=== PATIENT | female | born 1990 | race Caucasian/White ===

== ENCOUNTER 2019-08-01 16:52 | Emergency (ER) | payer OTHER, MEDICAID, SELFPAY ==
[2019-08-01 17:03] VITALS: BP 116/77; PULSE 127; RESP 28; TEMP 37.2; O2SAT 99; BMI 22.6
--- NOTE | 2019-08-01 17:25 | PC.NURSE ---
Dr. Moraes aware of modified trauma
--- NOTE | 2019-08-01 17:30 | ED.HEATRA ---
HPI - Head Injury <Henri Baxter DO - Last Filed: 08/02/19 06:12> General Chief complaint: Trauma Stated complaint: has the flu, now stomach swelling Time Seen by Provider: 08/01/19 17:28 Source: patient and family Limitations: no limitations History of Present Illness HPI Narrative: 29-year-old female smoker, occasionally uses methamphetamines and very heavy, chronic drinker presents with significant other and a chief complaint of feeling very ill for quite some time, stating she has not gotten off the couch about the past month because she has had the flu. She got up in off the couch and tripped and fell striking her face on the ground which was the triggering event for presentation today. She denies any headache or vision change, no runny nose, sore throat or cough. She does admit to ongoing and worsening generalized abdominal pain and change in bowel caliber. She has had no urinary complaints such as dysuria, frequency or urgency and denies any vaginal bleeding, discharge or other complaints. She states she drinks is much is a 5th of liquor daily. She was admitted at [facility] a few weeks ago under what seem to be relatively similar circumstances. Her last drink was perhaps 1 hour ago per the patient's own admission, she states that she tends to start withdrawing within a few hours Related Data Previous Rx's Medication Instructions Recorded clindamycin HCl [Cleocin HCl] 300 mg PO TID #30 cap 04/29/16 Allergies Allergy/AdvReac Type Severity Reaction Status Date / Time acetaminophen [ACETAMINOPHEN] Allergy Mild (VICODIN) Verified 08/01/19 17:11 ITCHING hydrocodone [HYDROCODONE] Allergy Mild (VICODIN) Verified 08/01/19 17:11 ITCHING hydromorphone [From Dilaudid] Allergy Verified 08/01/19 19:05 <Edgar Moraes MD - Last Filed: 08/02/19 23:16> General Source: patient Limitations: no limitations Review of Systems <Henri Baxter DO - Last Filed: 08/02/19 06:12> Constitutional Constitutional: Reports body ache(s), Denies chills, Reports fatigue, Denies fever(s), Denies frequent falls, Denies lethargy, Reports poor appetite and Denies weakness Eyes Eyes: Denies change in vision, Denies eye discharge, Denies irritation and Denies loss of vision ENT Ears, Nose, Mouth, and Throat: Denies change in voice, Denies dizziness, Denies neck pain, Denies sore throat and Denies throat swelling Cardiovascular Cardiovascular: Denies chest pain, Denies irregular heart rhythm, Denies lightheadedness, Denies palpitations, Denies dyspnea, Denies dyspnea on exertion and Denies orthopnea Respiratory Respiratory: Denies cough, Denies dyspnea, Denies dyspnea on exertion and Denies wheezing Gastrointestinal Gastrointestinal: Denies abdominal pain, Denies change in bowel habits, Denies diarrhea, Denies nausea and Denies vomiting Genitourinary Genitourinary: Denies hematuria, Denies flank pain, Denies urinary incontinence and Denies urinary urgency Musculoskeletal Musculoskeletal: Denies back pain, Denies muscle weakness, Denies neck pain, Denies numbness and Denies tingling Integumentary/Breasts Skin/Breast: Denies pruritus, Denies erythema, Denies rash and Denies wounds Neurologic Neurologic: Denies behavioral changes, Reports confusion, Denies dizziness, Denies frequent falls, Denies loss of vision, Denies numbness, Denies tingling and Denies weakness Psychiatric Psychiatric: Reports anxiety, Denies behavioral changes, Reports confusion, Denies depression, Denies homicidal ideation and Denies suicidal ideation Endocrine Endocrine: Reports fatigue, Denies flushing and Denies palpitations Hematologic/Lymphatic Hematologic/Lymphatic: Denies easy bruising Allergic/Immunologic Allergic/Immunologic: Denies urticaria, Denies throat swelling and Denies wheezing Patient History <Henri Baxter DO - Last Filed: 08/02/19 06:12> Family History Mother Age: 50 Thyroid disorder Uncomplicated asthma, unspecified asthma severity Sister Age: 33 Asthma Social History Smoking Status: Current every day smoker <Edgar Moraes MD - Last Filed: 08/02/19 23:16> Smoking Status: Current every day smoker tobacco type: cigarettes alcohol intake frequency: 3 or more drinks per day Substance Use Type: marijuana and methamphetamine Exam <Henri Baxter DO - Last Filed: 08/02/19 06:12> Narrative Exam Narrative: GENERAL: [29] year old patient appears older than stated age. Chronically ill an obviously in significant distress today. A bit agitated and irritated but directable and alert HEAD: Swelling over right cheek and right upper lip with ecchymosis. EYES: Pupils equal round and reactive. Extraocular motions intact. Scleral icterus ENT: Poor dentition throughout Nose without bleeding, purulent drainage. Throat without erythema, tonsillar hypertrophy or exudate. Airway patent. NECK: Trachea midline. Non tender CARDIOVASCULAR: Tachycardic but regular rhythm without murmurs, gallops, or rubs. RESPIRATORY: Clear to auscultation. Breath sounds equal bilaterally. No wheezes, rales, or rhonchi. GASTROINTESTINAL: Abdomen soft, non-tender, distended EXTREMITIES: No edema or joint tenderness. BACK: Nontender without deformity or crepitance. No flank tenderness. NEURO: AOx3. SKIN: Petechiae on chest Initial Vital Signs Initial Vital Signs: Vital Signs Temperature 98.9 F 08/01/19 17:03 Pulse Rate 127 H 08/01/19 17:03 Respiratory Rate 28 H 08/01/19 17:03 Blood Pressure 116/77 08/01/19 17:03 Pulse Oximetry 99 08/01/19 17:03 <Edgar Moraes MD - Last Filed: 08/02/19 23:16> Initial Vital Signs Initial Vital Signs: Vital Signs Temperature 98.9 F 08/01/19 17:03 Pulse Rate 127 H 08/01/19 17:03 Respiratory Rate 28 H 08/01/19 17:03 Blood Pressure 116/77 08/01/19 17:03 Pulse Oximetry 99 08/01/19 17:03 Scores <Henri Baxter DO - Last Filed: 08/02/19 06:12> ABCD2 Citation: CIWA-Ar for Alcohol Withdrawal from [employer] on 08/02/2019 All calculations should be rechecked by clinician prior to use RESULT SUMMARY: 11 points Patients with scores ?9 may require medication for withdrawal. INPUTS: Nausea/vomiting ?> 2 = (More severe symptoms) Tremor ?> 3 = (More severe symptoms) Paroxysmal sweats ?> 0 = No sweat visible Anxiety ?> 2 = (More severe symptoms) Agitation ?> 2 = (More severe symptoms) Tactile disturbances ?> 0 = None Auditory disturbances ?> 0 = Not present Visual disturbances ?> 0 = Not present Headache/fullness in head ?> 2 = Mild Orientation/clouding of sensorium ?> 0 = Oriented, can do serial additions Course <Henri Baxter, - Last Filed: 08/02/19 06:12> Orders Ordered: Discontinued Medications Lactated Ringer's (Lactated Ringers) 1,769.01 mls @ 589.67 mls/hr 30 ml/kg infuse over 3 hr (1769.01 ml) IV NOW ONE Stop: 08/01/19 21:36 Last Infusion: 08/01/19 22:30 Dose: 0 mls/hr Documented by: Admin: 08/01/19 18:57 Dose: 589.67 mls/hr Documented by: RADHA Ceftriaxone Sodium/Dextrose (Rocephin) 1 gm in 50 mls @ 100 mls/hr IV NOW ONE Stop: 08/01/19 19:19 Last Admin: 08/02/19 03:04 Dose: Not Given Documented by: MILTON Piperacillin/Tazobactam/Dextrose (Zosyn) 3.375 gm in 50 mls @ 100 mls/hr IV NOW ONE Stop: 08/01/19 19:21 Last Infusion: 08/01/19 21:32 Dose: 0 mls/hr Documented by: Admin: 08/01/19 19:30 Dose: 100 mls/hr Documented by: RADHA Lactated Ringer's (Lactated Ringers) 1,000 mls @ 1,000 mls/hr IV BOLUS ONE Stop: 08/02/19 00:52 Last Infusion: 08/02/19 01:33 Dose: 0 mls/hr Documented by: Admin: 08/02/19 00:02 Dose: 1,000 mls/hr Documented by: RADHA Ceftriaxone Sodium/Dextrose (Rocephin) 1 gm in 50 mls @ 100 mls/hr IV NOW ONE Stop: 08/02/19 01:44 Last Infusion: 08/02/19 03:04 Dose: 0 mls/hr Documented by: Admin: 08/02/19 02:34 Dose: 100 mls/hr Documented by: MILTON Lactated Ringer's (Lactated Ringers) 1,000 mls @ 150 mls/hr IV BOLUS ONE Stop: 08/02/19 08:13 Last Infusion: 08/02/19 03:03 Dose: 150 mls/hr Documented by: Admin: 08/02/19 01:48 Dose: 150 mls/hr Documented by: MILTON Phenobarbital (Phenobarbital) 130 mg IV NOW ONE Stop: 08/02/19 00:37 Last Admin: 08/02/19 01:28 Dose: 130 mg Documented by: MILTON Thiamine HCl (Vitamin B-1) 100 mg IV NOW ONE Stop: 08/02/19 00:45 Last Admin: 08/02/19 01:48 Dose: 100 mg Documented by: MILTON Vital Signs Vital signs: Vital Signs - 8 hr 08/02/19 00:45 08/02/19 03:08 Pulse Rate 113 H 120 H Respiratory Rate 17 20 Blood Pressure 129/60 Blood Pressure [Right Arm] 128/59 L Pulse Oximetry 98 98 <Edgar Moraes MD - Last Filed: 08/02/19 23:16> Orders Ordered: Discontinued Medications Lactated Ringer's (Lactated Ringers) 1,769.01 mls @ 589.67 mls/hr 30 ml/kg infuse over 3 hr (1769.01 ml) IV NOW ONE Stop: 08/01/19 21:36 Last Infusion: 08/01/19 22:30 Dose: 0 mls/hr Documented by: Admin: 08/01/19 18:57 Dose: 589.67 mls/hr Documented by: RADHA Ceftriaxone Sodium/Dextrose (Rocephin) 1 gm in 50 mls @ 100 mls/hr IV NOW ONE Stop: 08/01/19 19:19 Last Admin: 08/02/19 03:04 Dose: Not Given Documented by: MILTON Piperacillin/Tazobactam/Dextrose (Zosyn) 3.375 gm in 50 mls @ 100 mls/hr IV NOW ONE Stop: 08/01/19 19:21 Last Infusion: 08/01/19 21:32 Dose: 0 mls/hr Documented by: Admin: 08/01/19 19:30 Dose: 100 mls/hr Documented by: RADHA Lactated Ringer's (Lactated Ringers) 1,000 mls @ 1,000 mls/hr IV BOLUS ONE Stop: 08/02/19 00:52 Last Infusion: 08/02/19 01:33 Dose: 0 mls/hr Documented by: Admin: 08/02/19 00:02 Dose: 1,000 mls/hr Documented by: RADHA Ceftriaxone Sodium/Dextrose (Rocephin) 1 gm in 50 mls @ 100 mls/hr IV NOW ONE Stop: 08/02/19 01:44 Last Infusion: 08/02/19 03:04 Dose: 0 mls/hr Documented by: Admin: 08/02/19 02:34 Dose: 100 mls/hr Documented by: MILTON Lactated Ringer's (Lactated Ringers) 1,000 mls @ 150 mls/hr IV BOLUS ONE Stop: 08/02/19 08:13 Last Infusion: 08/02/19 03:03 Dose: 150 mls/hr Documented by: Admin: 08/02/19 01:48 Dose: 150 mls/hr Documented by: MILTON Phenobarbital (Phenobarbital) 130 mg IV NOW ONE Stop: 08/02/19 00:37 Last Admin: 08/02/19 01:28 Dose: 130 mg Documented by: MILTON Thiamine HCl (Vitamin B-1) 100 mg IV NOW ONE Stop: 08/02/19 00:45 Last Admin: 08/02/19 01:48 Dose: 100 mg Documented by: MILTON Vital Signs Vital signs: Vital Signs - 8 hr 08/02/19 00:45 08/02/19 03:08 Pulse Rate 113 H 120 H Respiratory Rate 17 20 Blood Pressure 129/60 Blood Pressure [Right Arm] 128/59 L Pulse Oximetry 98 98 MDM - Head Injury <Henri Baxter DO - Last Filed: 08/02/19 06:12> Lab Data Result diagrams: 08/01/19 17:40 08/01/19 17:40 Labs: Lab Results 08/01/19 08/01/19 08/01/19 Range/Units 00:00 17:37 17:37 WBC (4.5-11.0) X10^3/uL RBC (4.0-5.2) X10^6/uL Hgb (12.0-16.0) g/dL Hct (36-46) % MCV (80-100) fL MCH (26-34) PG MCHC (30-36) % RDW (11.6-14.8) % Plt Count (150-400) X10^3/uL Neut % (Auto) Lymph % (Auto) Bonner % (Auto) Eos % (Auto) Baso % (Auto) Lymph # (Auto) Bonner # (Auto) Baso # (Auto) Total Counted Seg Neutrophils % (38-70) % Band Neutrophils % (3-7) % Lymphocytes % (Manual) (25-45) % Monocytes % (Manual) (2-11) % Basophils % (Manual) (0-1) % Neutrophils # (Manual) (4661-5458) /uL RBC Morphology Anisocytosis Macrocytosis PT (10.1-12.7) SECONDS INR (0.9-1.3) APTT (26.4-36.2) SECONDS ABG pH 7.41 (7.35-7.45) ABG pCO2 40.0 (35-45) mmHg ABG pO2 78 L (80-100) mmHg ABG HCO3 26 (22-26) mmol/L ABG Total CO2 27 (21-31) mmol/L ABG O2 Saturation 96 (95-100) % ABG Base Excess 1.0 (-2-2) mmol/L FiO2 21 Sodium (137-145) mmol/L Potassium (3.4-5.1) mmol/L Chloride (98-107) mmol/L Carbon Dioxide (22-32) mmol/L BUN (7-17) mg/dL Creatinine (0.52-1.04) mg/dL Estimated GFR (>60) mL/min BUN/Creatinine Ratio (6-22) Glucose (70-100) mg/dL Lactate 6.8 H* (0.7-2.1) mmol/L Calcium (8.4-10.2) mg/dL Total Bilirubin (0.2-1.3) mg/dL Conjugated Bilirubin (0.0-0.3) md/dL Unconjugated Bilirubin (0.0-1.1) mg/dL AST (14-36) IU/L ALT (<35) IU/L Alkaline Phosphatase (38-126) U/L Ammonia (9-30) umol/L Total Creatine Kinase (30-135) U/L CK-MB (CK-2) CK-MB (CK-2) Rel Index Troponin I (0.01-0.034) ng/mL Total Protein (6.3-8.2) g/dL Albumin (3.5-5.0) g/dL Globulin (1.7-4.1) g/dL Albumin/Globulin Ratio (1.0-2.8) Lipase (23-300) U/L Serum , Qual (Negative) Urine RBC (0-5/HPF) Urine WBC (0-5/HPF) Ur Squamous Epith Cells (0-5/HPF) Amorphous Sediment Urine Bacteria (None) Urine Mucus (Negative) Ur Culture Indicated? U Opiates 300ng/mL cut (Negative) Ur Oxycodone Screen (Negative) Urine Methadone Screen (Negative) Ur Barbiturates Screen (Negative) U Tricyclic Antidepress (Negative) Ur Phencyclidine Scrn (Negative) Ur Amphetamines Screen (Negative) U Methamphetamines Scrn (Negative) Ur MDMA Scrn (Ecstasy) (Negative) U Benzodiazepines Scrn (Negative) Urine Cocaine Screen (Negative) U Marijuana (THC) Screen (Negative) Ethyl Alcohol ( - 10) mg/dL Blood Type O Positive Antibody Screen Negative 08/01/19 08/01/19 08/01/19 Range/Units 17:40 17:40 17:40 WBC 14.0 H (4.5-11.0) X10^3/uL RBC 3.21 L (4.0-5.2) X10^6/uL Hgb 11.3 L (12.0-16.0) g/dL Hct 33.6 L (36-46) % MCV 104.8 H (80-100) fL MCH 35.3 H (26-34) PG MCHC 33.7 (30-36) % RDW 18.4 H (11.6-14.8) % Plt Count 212 (150-400) X10^3/uL Neut % (Auto) Not Reportable Lymph % (Auto) Not Reportable Bonner % (Auto) Not Reportable Eos % (Auto) Not Reportable Baso % (Auto) Not Reportable Lymph # (Auto) Not Reportable Bonner # (Auto) Not Reportable Baso # (Auto) Not Reportable Total Counted 100 Seg Neutrophils % 71.0 H (38-70) % Band Neutrophils % 8.0 H (3-7) % Lymphocytes % (Manual) 14.0 L (25-45) % Monocytes % (Manual) 6.0 (2-11) % Basophils % (Manual) 1.0 (0-1) % Neutrophils # (Manual) 05236 H (8900-4246) /uL RBC Morphology See below Anisocytosis 1+ H Macrocytosis 1+ H PT 16.6 H (10.1-12.7) SECONDS INR 1.4 H (0.9-1.3) APTT 40 H (26.4-36.2) SECONDS ABG pH (7.35-7.45) ABG pCO2 (35-45) mmHg ABG pO2 (80-100) mmHg ABG HCO3 (22-26) mmol/L ABG Total CO2 (21-31) mmol/L ABG O2 Saturation (95-100) % ABG Base Excess (-2-2) mmol/L FiO2 Sodium 142 (137-145) mmol/L Potassium 3.5 (3.4-5.1) mmol/L Chloride 95 L (98-107) mmol/L Carbon Dioxide 27 (22-32) mmol/L BUN 6 L (7-17) mg/dL Creatinine 0.40 L (0.52-1.04) mg/dL Estimated GFR > 60.0 (>60) mL/min BUN/Creatinine Ratio 15.0 (6-22) Glucose 122 H (70-100) mg/dL Lactate (0.7-2.1) mmol/L Calcium 8.0 L (8.4-10.2) mg/dL Total Bilirubin 10.0 H (0.2-1.3) mg/dL Conjugated Bilirubin 4.7 H (0.0-0.3) md/dL Unconjugated Bilirubin 1.3 H (0.0-1.1) mg/dL AST 700 H (14-36) IU/L ALT 84 H (<35) IU/L Alkaline Phosphatase 698 H (38-126) U/L Ammonia (9-30) umol/L Total Creatine Kinase 30 (30-135) U/L CK-MB (CK-2) TNP CK-MB (CK-2) Rel Index TNP Troponin I < 0.012 (0.01-0.034) ng/mL Total Protein 7.9 (6.3-8.2) g/dL Albumin 3.6 (3.5-5.0) g/dL Globulin 4.3 H (1.7-4.1) g/dL Albumin/Globulin Ratio 0.8 L (1.0-2.8) Lipase 439 H (23-300) U/L Serum , Qual (Negative) Urine RBC (0-5/HPF) Urine WBC (0-5/HPF) Ur Squamous Epith Cells (0-5/HPF) Amorphous Sediment Urine Bacteria (None) Urine Mucus (Negative) Ur Culture Indicated? U Opiates 300ng/mL cut (Negative) Ur Oxycodone Screen (Negative) Urine Methadone Screen (Negative) Ur Barbiturates Screen (Negative) U Tricyclic Antidepress (Negative) Ur Phencyclidine Scrn (Negative) Ur Amphetamines Screen (Negative) U Methamphetamines Scrn (Negative) Ur MDMA Scrn (Ecstasy) (Negative) U Benzodiazepines Scrn (Negative) Urine Cocaine Screen (Negative) U Marijuana (THC) Screen (Negative) Ethyl Alcohol 423 H* ( - 10) mg/dL Blood Type Antibody Screen 08/01/19 08/01/19 08/01/19 Range/Units 17:40 17:40 18:27 WBC (4.5-11.0) X10^3/uL RBC (4.0-5.2) X10^6/uL Hgb (12.0-16.0) g/dL Hct (36-46) % MCV (80-100) fL MCH (26-34) PG MCHC (30-36) % RDW (11.6-14.8) % Plt Count (150-400) X10^3/uL Neut % (Auto) Lymph % (Auto) Bonner % (Auto) Eos % (Auto) Baso % (Auto) Lymph # (Auto) Bonner # (Auto) Baso # (Auto) Total Counted Seg Neutrophils % (38-70) % Band Neutrophils % (3-7) % Lymphocytes % (Manual) (25-45) % Monocytes % (Manual) (2-11) % Basophils % (Manual) (0-1) % Neutrophils # (Manual) (0878-9617) /uL RBC Morphology Anisocytosis Macrocytosis PT (10.1-12.7) SECONDS INR (0.9-1.3) APTT (26.4-36.2) SECONDS ABG pH (7.35-7.45) ABG pCO2 (35-45) mmHg ABG pO2 (80-100) mmHg ABG HCO3 (22-26) mmol/L ABG Total CO2 (21-31) mmol/L ABG O2 Saturation (95-100) % ABG Base Excess (-2-2) mmol/L FiO2 Sodium (137-145) mmol/L Potassium (3.4-5.1) mmol/L Chloride (98-107) mmol/L Carbon Dioxide (22-32) mmol/L BUN (7-17) mg/dL Creatinine (0.52-1.04) mg/dL Estimated GFR (>60) mL/min BUN/Creatinine Ratio (6-22) Glucose (70-100) mg/dL Lactate (0.7-2.1) mmol/L Calcium (8.4-10.2) mg/dL Total Bilirubin (0.2-1.3) mg/dL Conjugated Bilirubin (0.0-0.3) md/dL Unconjugated Bilirubin (0.0-1.1) mg/dL AST (14-36) IU/L ALT (<35) IU/L Alkaline Phosphatase (38-126) U/L Ammonia 39 H (9-30) umol/L Total Creatine Kinase (30-135) U/L CK-MB (CK-2) CK-MB (CK-2) Rel Index Troponin I (0.01-0.034) ng/mL Total Protein (6.3-8.2) g/dL Albumin (3.5-5.0) g/dL Globulin (1.7-4.1) g/dL Albumin/Globulin Ratio (1.0-2.8) Lipase (23-300) U/L Serum , Qual Negative (Negative) Urine RBC (0-5/HPF) Urine WBC (0-5/HPF) Ur Squamous Epith Cells (0-5/HPF) Amorphous Sediment Urine Bacteria (None) Urine Mucus (Negative) Ur Culture Indicated? U Opiates 300ng/mL cut Negative (Negative) Ur Oxycodone Screen Negative (Negative) Urine Methadone Screen Negative (Negative) Ur Barbiturates Screen Negative (Negative) U Tricyclic Antidepress Negative (Negative) Ur Phencyclidine Scrn Negative (Negative) Ur Amphetamines Screen Negative (Negative) U Methamphetamines Scrn Positive H (Negative) Ur MDMA Scrn (Ecstasy) Negative (Negative) U Benzodiazepines Scrn Negative (Negative) Urine Cocaine Screen Negative (Negative) U Marijuana (THC) Screen Negative (Negative) Ethyl Alcohol ( - 10) mg/dL Blood Type Antibody Screen 08/01/19 08/01/19 Range/Units 18:27 22:55 WBC (4.5-11.0) X10^3/uL RBC (4.0-5.2) X10^6/uL Hgb (12.0-16.0) g/dL Hct (36-46) % MCV (80-100) fL MCH (26-34) PG MCHC (30-36) % RDW (11.6-14.8) % Plt Count (150-400) X10^3/uL Neut % (Auto) Lymph % (Auto) Bonner % (Auto) Eos % (Auto) Baso % (Auto) Lymph # (Auto) Bonner # (Auto) Baso # (Auto) Total Counted Seg Neutrophils % (38-70) % Band Neutrophils % (3-7) % Lymphocytes % (Manual) (25-45) % Monocytes % (Manual) (2-11) % Basophils % (Manual) (0-1) % Neutrophils # (Manual) (9757-0260) /uL RBC Morphology Anisocytosis Macrocytosis PT (10.1-12.7) SECONDS INR (0.9-1.3) APTT (26.4-36.2) SECONDS ABG pH (7.35-7.45) ABG pCO2 (35-45) mmHg ABG pO2 (80-100) mmHg ABG HCO3 (22-26) mmol/L ABG Total CO2 (21-31) mmol/L ABG O2 Saturation (95-100) % ABG Base Excess (-2-2) mmol/L FiO2 Sodium (137-145) mmol/L Potassium (3.4-5.1) mmol/L Chloride (98-107) mmol/L Carbon Dioxide (22-32) mmol/L BUN (7-17) mg/dL Creatinine (0.52-1.04) mg/dL Estimated GFR (>60) mL/min BUN/Creatinine Ratio (6-22) Glucose (70-100) mg/dL Lactate 8.2 H* (0.7-2.1) mmol/L Calcium (8.4-10.2) mg/dL Total Bilirubin (0.2-1.3) mg/dL Conjugated Bilirubin (0.0-0.3) md/dL Unconjugated Bilirubin (0.0-1.1) mg/dL AST (14-36) IU/L ALT (<35) IU/L Alkaline Phosphatase (38-126) U/L Ammonia (9-30) umol/L Total Creatine Kinase (30-135) U/L CK-MB (CK-2) CK-MB (CK-2) Rel Index Troponin I (0.01-0.034) ng/mL Total Protein (6.3-8.2) g/dL Albumin (3.5-5.0) g/dL Globulin (1.7-4.1) g/dL Albumin/Globulin Ratio (1.0-2.8) Lipase (23-300) U/L Serum , Qual (Negative) Urine RBC 0-1/hpf (0-5/HPF) Urine WBC 5-10/hpf H (0-5/HPF) Ur Squamous Epith Cells 5-10 /hpf H (0-5/HPF) Amorphous Sediment 1+ Urine Bacteria Few (2-10) H (None) Urine Mucus 1+ H (Negative) Ur Culture Indicated? Specimen cultured U Opiates 300ng/mL cut (Negative) Ur Oxycodone Screen (Negative) Urine Methadone Screen (Negative) Ur Barbiturates Screen (Negative) U Tricyclic Antidepress (Negative) Ur Phencyclidine Scrn (Negative) Ur Amphetamines Screen (Negative) U Methamphetamines Scrn (Negative) Ur MDMA Scrn (Ecstasy) (Negative) U Benzodiazepines Scrn (Negative) Urine Cocaine Screen (Negative) U Marijuana (THC) Screen (Negative) Ethyl Alcohol ( - 10) mg/dL Blood Type Antibody Screen Urine Dip Bedside Urine Glucose 100 mg/dl Bedside Urine Bilirubin +++ 4 Bedside Urine Ketone +/- 5 Urine Specific [place] 1.020 Bedside Urine Occult Blood +/- Bedside Urine pH 6.0 Bedside Urine Protein + 30 Bedside Urine Urobilinogen 1+ 2mg Bedside Urine Nitrite + Positive Bedside Urine Leukocytes + [address] scan - head: Radiologist's Impression: Chart Viewer Diagnostics DATE TYPE STATUS AUTHOR Hx 08/01/19 17:31 Aiden Srivastava 08/01/19 17:31 Aiden Srivastava 08/01/19 17:30 Wilder Srivastavaderic Zaina Rebolledo 29, F0 1990 REG ER, Main ED R04 161.29cm 58.967kg BMI: 22.7kg/m? Trauma Search Chart No Data to Display (VICODIN) ITCHING (VICODIN) ITCHING ONSET 04/20/15 04/20/15 Today 00:45 Zaina Rebolledo 29 F 1990 [place] [address] CT Scan Report Signed Patient: Zaina Rebolledo EMR#: [id number] : 1990Acct:[id number] Age/Sex: te of Service: 08/01/19 Loc: ED Accession Number: [id number] Procedure: CT head/brain wo con Ordering Provider: Edgar Moraes MD PROCEDURE: CT HEAD/BRAIN WO CON INDICATIONS: Trauma TECHNIQUE: Noncontrast 4.5 mm thick angled axial sections acquired from the foramen magnum to the vertex, with coronal and sagittal reformats. For radiation dose reduction, the following was used: automated exposure control, adjustment of mA and/or kV according to patient size. COMPARISON: None. FINDINGS: Image quality: Excellent. CSF spaces: Basal cisterns are patent. No extra-axial fluid collections. Ventricles are normal in size and shape. Brain: No midline shift. No intracranial masses or hemorrhage. Nagy-white matter interface is normal. Diffuse volume loss. Greater than expected for patient age. Skull and face: Calvarium and visualized facial bones are intact, without suspicious lesions. Sinuses: Marked mucosal thickening of both maxillary sinuses. Patchy bilateral ethmoid opacification. Sphenoid sinus mucous retention cyst and mucosal thickening. IMPRESSION: 1. Diffuse volume loss, greater than expected for patient age. 2. Negative for acute stroke, hemorrhage, or mass. No evidence of significant sequelae of acute trauma. 3. Extensive changes of chronic sinus disease. Dictated by: Aiden Srivastava M.D. on 08/01/2019 at 18:31 Approved by: Aiden Srivastava M.D. on 08/01/2019 at 18:32 CT - cervical spine: Radiologist's Impression: Zaina Rebolledo 29 F [address] [address] [address] Scan Report Signed Patient: Zaina Rebolledo EMR#: [id number] : 1990Acct:[id number] Age/Sex: 29 / FDate of Service: 08/01/19 Loc: ED Accession Number: [id number] Procedure: CT cervical spine wo con Ordering Provider: Edgar Moraes MD PROCEDURE: CT CERVICAL SPINE WO CON INDICATIONS: Trauma TECHNIQUE: Noncontrast 3 mm thick sections acquired from the skull base to the T4 level. Sagittal and coronal reformats were then constructed. For radiation dose reduction, the following was used: automated exposure control, adjustment of mA and/or kV according to patient size. COMPARISON: None. FINDINGS: Image quality: Excellent. Bones: No fractures or dislocations. Visualized superior ribs are intact. Left C4-C5 and C5-C6 facet arthropathy. Soft tissues: Prevertebral soft tissues are normal in thickness. No paravertebral hematomas. No apical pneumothoraces. IMPRESSION: 1. No evidence acute cervical fracture or dislocation. 2. Left cervical facet arthropathy. Dictated by: Aiden Srivastava M.D. on 08/01/2019 at 18:33 CT scan - abdomen/pelvis: Radiologist's Impression: Zaina Rebolledo 29 F [address] [address] [address] Scan Report Signed Patient: Zaina Rebolledo EMR#: [id number] : 1990Acct:[id number] Age/Sex: 29 / FDate of Service: 08/01/19 Loc: ED Accession Number: [id number] Procedure: CT chest abdomen w con Ordering Provider: Edgar Moraes MD PROCEDURE: CT CHEST ABDOMEN W CON INDICATIONS: Fall, alcoholic, jaundiced TECHNIQUE: After the administration of intravenous contrast, 5 mm thick sections acquired from the lung apices to the iliac crests. 5 mm coronal and sagittal reformats were performed, with additional 7 mm coronal MIP reformats through the lungs. For radiation dose reduction, the following was used: automated exposure control, adjustment of mA and/or kV according to patient size. COMPARISON: None. FINDINGS: Image quality: Excellent. CHEST: Lungs and pleura: Patchy left basilar atelectasis. Lungs otherwise clear. Minimal left pleural effusion. No pneumothorax. Central and peripheral airways appear patent and normal in caliber. Mediastinum: Heart size is normal. No pericardial effusion. No mediastinal or hilar adenopathy by size criteria. Thoracic aorta and central pulmonary arteries are normal in size. Esophagus is normal in caliber. No hiatal hernia. Chest wall: No axillary or supraclavicular adenopathy by size criteria. Thyroid gland is unremarkable. ABDOMEN: Solid organs: Marked hepatomegaly and marked hepatic steatosis. Gallbladder wall is mildly diffusely thickened. No identifiable gallstones. Biliary system is non dilated. Mild peripancreatic inflammatory change. is normal in size and enhancement. No adrenal nodules. Kidneys demonstrate normal size and enhancement, without hydronephrosis. Peritoneum and bowel: Diffuse gastric wall thickening suggest acute gastritis. There is prominent diffuse thickening of the wall of the cecum and ascending colon, and mild diffuse wall thickening of the remainder of the colon. Mild to moderate ascites, predominantly in the pelvis. No free air or abscess cavity. Nodes and vessels: No retroperitoneal or mesenteric adenopathy by size criteria. Aorta and inferior vena cava are normal in size. Bones: No suspicious bony lesions. No vertebral body compression fractures. Miscellaneous: No ventral hernias. An IUD is present in the uterus. IMPRESSION: 1. Marked hepatomegaly, and marked hepatic steatosis. 2. CT findings suggest possible acute pancreatitis. 3. Mild to moderate ascites. 4. Gallbladder wall thickening is nonspecific in the setting of hepatocellular disease and ascites. 5. Diffuse gastric wall thickening suggests acute gastritis. 6. Minimal left basilar atelectasis and left pleural effusion. 7. Diffuse colonic wall thickening, most notably involving the right colon, possibly representing inflammatory or infectious colitis versus finding secondary to hepatocellular disease and ascites. Dictated by: Aiden Srivastava M.D. on 08/01/2019 at 18:35 Approved by: Aiden Srivastava M.D. on 08/01/2019 at 18:44 MDM Narrative Medical decision making narrative: Patient clearly very ill, poor historian. She reports being sick with the ?flu? and laying on the couch for the past few weeks and upon standing today tripped and fell striking her head. She denies any fever chills but states she has been nauseated with decreased appetite and change in the caliber of her stool over the past few weeks. She drinks 1/5 of liquor daily and states that she stopped just an hour or 2 ago. Initially seen as a trauma given her report of fall, imaging negative for traumatic findings. Abdomen images not chronic findings plus possibly colitis. LR chosen for fluid resuscitation given suspicion of sepsis and pancreatitis with high likelihood of acidosis. Liver failure thought to be chronic, rising lactate possibly from decreased liver metabolism of lactate however on recognized infectious etiology must be considered. These considerations include spontaneous bacterial peritonitis and colitis. Patient does have some thickening of her gallbladder as well. [facility] at [facility] consulted and happy to accept this patient. He did request lb min but we were unable to get it from our night picks is prior to patient being transferred. <Edgar Moraes MD - Last Filed: 08/02/19 23:16> Lab Data Labs: Lab Results 08/01/19 08/01/19 08/01/19 Range/Units 00:00 17:37 17:37 WBC (4.5-11.0) X10^3/uL RBC (4.0-5.2) X10^6/uL Hgb (12.0-16.0) g/dL Hct (36-46) % MCV (80-100) fL MCH (26-34) PG MCHC (30-36) % RDW (11.6-14.8) % Plt Count (150-400) X10^3/uL Neut % (Auto) Lymph % (Auto) Bonner % (Auto) Eos % (Auto) Baso % (Auto) Lymph # (Auto) Bonner # (Auto) Baso # (Auto) Total Counted Seg Neutrophils % (38-70) % Band Neutrophils % (3-7) % Lymphocytes % (Manual) (25-45) % Monocytes % (Manual) (2-11) % Basophils % (Manual) (0-1) % Neutrophils # (Manual) (0343-6277) /uL RBC Morphology Anisocytosis Macrocytosis PT (10.1-12.7) SECONDS INR (0.9-1.3) APTT (26.4-36.2) SECONDS ABG pH 7.41 (7.35-7.45) ABG pCO2 40.0 (35-45) mmHg ABG pO2 78 L (80-100) mmHg ABG HCO3 26 (22-26) mmol/L ABG Total CO2 27 (21-31) mmol/L ABG O2 Saturation 96 (95-100) % ABG Base Excess 1.0 (-2-2) mmol/L FiO2 21 Sodium (137-145) mmol/L Potassium (3.4-5.1) mmol/L Chloride (98-107) mmol/L Carbon Dioxide (22-32) mmol/L BUN (7-17) mg/dL Creatinine (0.52-1.04) mg/dL Estimated GFR (>60) mL/min BUN/Creatinine Ratio (6-22) Glucose (70-100) mg/dL Lactate 6.8 H* (0.7-2.1) mmol/L Calcium (8.4-10.2) mg/dL Total Bilirubin (0.2-1.3) mg/dL Conjugated Bilirubin (0.0-0.3) md/dL Unconjugated Bilirubin (0.0-1.1) mg/dL AST (14-36) IU/L ALT (<35) IU/L Alkaline Phosphatase (38-126) U/L Ammonia (9-30) umol/L Total Creatine Kinase (30-135) U/L CK-MB (CK-2) CK-MB (CK-2) Rel Index Troponin I (0.01-0.034) ng/mL Total Protein (6.3-8.2) g/dL Albumin (3.5-5.0) g/dL Globulin (1.7-4.1) g/dL Albumin/Globulin Ratio (1.0-2.8) Lipase (23-300) U/L Serum , Qual (Negative) Urine RBC (0-5/HPF) Urine WBC (0-5/HPF) Ur Squamous Epith Cells (0-5/HPF) Amorphous Sediment Urine Bacteria (None) Urine Mucus (Negative) Ur Culture Indicated? U Opiates 300ng/mL cut (Negative) Ur Oxycodone Screen (Negative) Urine Methadone Screen (Negative) Ur Barbiturates Screen (Negative) U Tricyclic Antidepress (Negative) Ur Phencyclidine Scrn (Negative) Ur Amphetamines Screen (Negative) U Methamphetamines Scrn (Negative) Ur MDMA Scrn (Ecstasy) (Negative) U Benzodiazepines Scrn (Negative) Urine Cocaine Screen (Negative) U Marijuana (THC) Screen (Negative) Ethyl Alcohol ( - 10) mg/dL Blood Type O Positive Antibody Screen Negative 08/01/19 08/01/19 08/01/19 Range/Units 17:40 17:40 17:40 WBC 14.0 H (4.5-11.0) X10^3/uL RBC 3.21 L (4.0-5.2) X10^6/uL Hgb 11.3 L (12.0-16.0) g/dL Hct 33.6 L (36-46) % MCV 104.8 H (80-100) fL MCH 35.3 H (26-34) PG MCHC 33.7 (30-36) % RDW 18.4 H (11.6-14.8) % Plt Count 212 (150-400) X10^3/uL Neut % (Auto) Not Reportable Lymph % (Auto) Not Reportable Bonner % (Auto) Not Reportable Eos % (Auto) Not Reportable Baso % (Auto) Not Reportable Lymph # (Auto) Not Reportable Bonner # (Auto) Not Reportable Baso # (Auto) Not Reportable Total Counted 100 Seg Neutrophils % 71.0 H (38-70) % Band Neutrophils % 8.0 H (3-7) % Lymphocytes % (Manual) 14.0 L (25-45) % Monocytes % (Manual) 6.0 (2-11) % Basophils % (Manual) 1.0 (0-1) % Neutrophils # (Manual) 88510 H (8023-3004) /uL RBC Morphology See below Anisocytosis 1+ H Macrocytosis 1+ H PT 16.6 H (10.1-12.7) SECONDS INR 1.4 H (0.9-1.3) APTT 40 H (26.4-36.2) SECONDS ABG pH (7.35-7.45) ABG pCO2 (35-45) mmHg ABG pO2 (80-100) mmHg ABG HCO3 (22-26) mmol/L ABG Total CO2 (21-31) mmol/L ABG O2 Saturation (95-100) % ABG Base Excess (-2-2) mmol/L FiO2 Sodium 142 (137-145) mmol/L Potassium 3.5 (3.4-5.1) mmol/L Chloride 95 L (98-107) mmol/L Carbon Dioxide 27 (22-32) mmol/L BUN 6 L (7-17) mg/dL Creatinine 0.40 L (0.52-1.04) mg/dL Estimated GFR > 60.0 (>60) mL/min BUN/Creatinine Ratio 15.0 (6-22) Glucose 122 H (70-100) mg/dL Lactate (0.7-2.1) mmol/L Calcium 8.0 L (8.4-10.2) mg/dL Total Bilirubin 10.0 H (0.2-1.3) mg/dL Conjugated Bilirubin 4.7 H (0.0-0.3) md/dL Unconjugated Bilirubin 1.3 H (0.0-1.1) mg/dL AST 700 H (14-36) IU/L ALT 84 H (<35) IU/L Alkaline Phosphatase 698 H (38-126) U/L Ammonia (9-30) umol/L Total Creatine Kinase 30 (30-135) U/L CK-MB (CK-2) TNP CK-MB (CK-2) Rel Index TNP Troponin I < 0.012 (0.01-0.034) ng/mL Total Protein 7.9 (6.3-8.2) g/dL Albumin 3.6 (3.5-5.0) g/dL Globulin 4.3 H (1.7-4.1) g/dL Albumin/Globulin Ratio 0.8 L (1.0-2.8) Lipase 439 H (23-300) U/L Serum , Qual (Negative) Urine RBC (0-5/HPF) Urine WBC (0-5/HPF) Ur Squamous Epith Cells (0-5/HPF) Amorphous Sediment Urine Bacteria (None) Urine Mucus (Negative) Ur Culture Indicated? U Opiates 300ng/mL cut (Negative) Ur Oxycodone Screen (Negative) Urine Methadone Screen (Negative) Ur Barbiturates Screen (Negative) U Tricyclic Antidepress (Negative) Ur Phencyclidine Scrn (Negative) Ur Amphetamines Screen (Negative) U Methamphetamines Scrn (Negative) Ur MDMA Scrn (Ecstasy) (Negative) U Benzodiazepines Scrn (Negative) Urine Cocaine Screen (Negative) U Marijuana (THC) Screen (Negative) Ethyl Alcohol 423 H* ( - 10) mg/dL Blood Type Antibody Screen 08/01/19 08/01/19 08/01/19 Range/Units 17:40 17:40 18:27 WBC (4.5-11.0) X10^3/uL RBC (4.0-5.2) X10^6/uL Hgb (12.0-16.0) g/dL Hct (36-46) % MCV (80-100) fL MCH (26-34) PG MCHC (30-36) % RDW (11.6-14.8) % Plt Count (150-400) X10^3/uL Neut % (Auto) Lymph % (Auto) Bonner % (Auto) Eos % (Auto) Baso % (Auto) Lymph # (Auto) Bonner # (Auto) Baso # (Auto) Total Counted Seg Neutrophils % (38-70) % Band Neutrophils % (3-7) % Lymphocytes % (Manual) (25-45) % Monocytes % (Manual) (2-11) % Basophils % (Manual) (0-1) % Neutrophils # (Manual) (9938-3368) /uL RBC Morphology Anisocytosis Macrocytosis PT (10.1-12.7) SECONDS INR (0.9-1.3) APTT (26.4-36.2) SECONDS ABG pH (7.35-7.45) ABG pCO2 (35-45) mmHg ABG pO2 (80-100) mmHg ABG HCO3 (22-26) mmol/L ABG Total CO2 (21-31) mmol/L ABG O2 Saturation (95-100) % ABG Base Excess (-2-2) mmol/L FiO2 Sodium (137-145) mmol/L Potassium (3.4-5.1) mmol/L Chloride (98-107) mmol/L Carbon Dioxide (22-32) mmol/L BUN (7-17) mg/dL Creatinine (0.52-1.04) mg/dL Estimated GFR (>60) mL/min BUN/Creatinine Ratio (6-22) Glucose (70-100) mg/dL Lactate (0.7-2.1) mmol/L Calcium (8.4-10.2) mg/dL Total Bilirubin (0.2-1.3) mg/dL Conjugated Bilirubin (0.0-0.3) md/dL Unconjugated Bilirubin (0.0-1.1) mg/dL AST (14-36) IU/L ALT (<35) IU/L Alkaline Phosphatase (38-126) U/L Ammonia 39 H (9-30) umol/L Total Creatine Kinase (30-135) U/L CK-MB (CK-2) CK-MB (CK-2) Rel Index Troponin I (0.01-0.034) ng/mL Total Protein (6.3-8.2) g/dL Albumin (3.5-5.0) g/dL Globulin (1.7-4.1) g/dL Albumin/Globulin Ratio (1.0-2.8) Lipase (23-300) U/L Serum , Qual Negative (Negative) Urine RBC (0-5/HPF) Urine WBC (0-5/HPF) Ur Squamous Epith Cells (0-5/HPF) Amorphous Sediment Urine Bacteria (None) Urine Mucus (Negative) Ur Culture Indicated? U Opiates 300ng/mL cut Negative (Negative) Ur Oxycodone Screen Negative (Negative) Urine Methadone Screen Negative (Negative) Ur Barbiturates Screen Negative (Negative) U Tricyclic Antidepress Negative (Negative) Ur Phencyclidine Scrn Negative (Negative) Ur Amphetamines Screen Negative (Negative) U Methamphetamines Scrn Positive H (Negative) Ur MDMA Scrn (Ecstasy) Negative (Negative) U Benzodiazepines Scrn Negative (Negative) Urine Cocaine Screen Negative (Negative) U Marijuana (THC) Screen Negative (Negative) Ethyl Alcohol ( - 10) mg/dL Blood Type Antibody Screen 08/01/19 08/01/19 Range/Units 18:27 22:55 WBC (4.5-11.0) X10^3/uL RBC (4.0-5.2) X10^6/uL Hgb (12.0-16.0) g/dL Hct (36-46) % MCV (80-100) fL MCH (26-34) PG MCHC (30-36) % RDW (11.6-14.8) % Plt Count (150-400) X10^3/uL Neut % (Auto) Lymph % (Auto) Bonner % (Auto) Eos % (Auto) Baso % (Auto) Lymph # (Auto) Bonner # (Auto) Baso # (Auto) Total Counted Seg Neutrophils % (38-70) % Band Neutrophils % (3-7) % Lymphocytes % (Manual) (25-45) % Monocytes % (Manual) (2-11) % Basophils % (Manual) (0-1) % Neutrophils # (Manual) (6101-7991) /uL RBC Morphology Anisocytosis Macrocytosis PT (10.1-12.7) SECONDS INR (0.9-1.3) APTT (26.4-36.2) SECONDS ABG pH (7.35-7.45) ABG pCO2 (35-45) mmHg ABG pO2 (80-100) mmHg ABG HCO3 (22-26) mmol/L ABG Total CO2 (21-31) mmol/L ABG O2 Saturation (95-100) % ABG Base Excess (-2-2) mmol/L FiO2 Sodium (137-145) mmol/L Potassium (3.4-5.1) mmol/L Chloride (98-107) mmol/L Carbon Dioxide (22-32) mmol/L BUN (7-17) mg/dL Creatinine (0.52-1.04) mg/dL Estimated GFR (>60) mL/min BUN/Creatinine Ratio (6-22) Glucose (70-100) mg/dL Lactate 8.2 H* (0.7-2.1) mmol/L Calcium (8.4-10.2) mg/dL Total Bilirubin (0.2-1.3) mg/dL Conjugated Bilirubin (0.0-0.3) md/dL Unconjugated Bilirubin (0.0-1.1) mg/dL AST (14-36) IU/L ALT (<35) IU/L Alkaline Phosphatase (38-126) U/L Ammonia (9-30) umol/L Total Creatine Kinase (30-135) U/L CK-MB (CK-2) CK-MB (CK-2) Rel Index Troponin I (0.01-0.034) ng/mL Total Protein (6.3-8.2) g/dL Albumin (3.5-5.0) g/dL Globulin (1.7-4.1) g/dL Albumin/Globulin Ratio (1.0-2.8) Lipase (23-300) U/L Serum , Qual (Negative) Urine RBC 0-1/hpf (0-5/HPF) Urine WBC 5-10/hpf H (0-5/HPF) Ur Squamous Epith Cells 5-10 /hpf H (0-5/HPF) Amorphous Sediment 1+ Urine Bacteria Few (2-10) H (None) Urine Mucus 1+ H (Negative) Ur Culture Indicated? Specimen cultured U Opiates 300ng/mL cut (Negative) Ur Oxycodone Screen (Negative) Urine Methadone Screen (Negative) Ur Barbiturates Screen (Negative) U Tricyclic Antidepress (Negative) Ur Phencyclidine Scrn (Negative) Ur Amphetamines Screen (Negative) U Methamphetamines Scrn (Negative) Ur MDMA Scrn (Ecstasy) (Negative) U Benzodiazepines Scrn (Negative) Urine Cocaine Screen (Negative) U Marijuana (THC) Screen (Negative) Ethyl Alcohol ( - 10) mg/dL Blood Type Antibody Screen Urine Dip Bedside Urine Glucose 100 mg/dl Bedside Urine Bilirubin +++ 4 Bedside Urine Ketone +/- 5 Urine Specific [place] 1.020 Bedside Urine Occult Blood +/- Bedside Urine pH 6.0 Bedside Urine Protein + 30 Bedside Urine Urobilinogen 1+ 2mg Bedside Urine Nitrite + Positive Bedside Urine Leukocytes + 70 Esterase Critical Care Time <Henri Baxter DO - Last Filed: 08/02/19 06:12> Critical Care Time Critical Care Time: Yes Total Critical Care Time: 45 Attestation: The high probability of a clinically significant, sudden or life threatening deterioration of the [CV] system(s) required my full and direct attention, intervention and personal management. The aggregate critical care time [id number]. This time is in addition to time spent performing reported procedures but includes the following: [x] Data Review and interpretation [x] Patient assessment and monitoring of vital signs [x] Documentation [x] Medication orders and management Discharge Plan Departure [facility]: [facility] Clinical Impression: Acute metabolic encephalopathy, Alcohol abuse Alcohol withdrawal Qualifiers: Complication of substance-induced condition: with delirium Qualified Code(s): F10.231 - Alcohol dependence with withdrawal delirium Sepsis Qualifiers: Sepsis type: sepsis due to unspecified organism Sepsis acute organ dysfunction status: unspecified Qualified Code(s): A41.9 - Sepsis, unspecified organism Contusion of face Qualifiers: Encounter type: initial encounter Qualified Code(s): S00.83XA - Contusion of other part of head, initial encounter Discharge Date/Time: 08/02/19 03:08 Prescriptions: No Action clindamycin HCl [Cleocin HCl] 300 MG capsule 300 mg PO TID Qty: 30 RF: 0 Referrals: Catrina Osuna PA-C [Primary Care Provider] -
[2019-08-01 17:44] VITALS: BP 138/82; PULSE 123; RESP 22; TEMP 36.9; O2SAT 98
[2019-08-01 18:03] LABS: INR 1.4 (0.9-1.3); Prothrombin Time 16.6 SECONDS (10.1-12.7)
[2019-08-01 18:06] LABS: Alanine Aminotransferase 84 IU/L (<35); Albumin 3.6 g/dL (3.5-5.0); Albumin Globulin Ratio 0.8 (1.0-2.8); Alkaline Phosphatase 698 U/L (38-126); Blood Urea Nitrogen 6 mg/dL (7-17); Carbon Dioxide 27 mmol/L (22-32); Chloride 95 mmol/L (98-107); Creatine Kinase 30 U/L (30-135); Estimated Glomerular Filt Rate > 60.0 mL/min (>60); Globulin 4.3 g/dL (1.7-4.1); Glucose 122 mg/dL (70-100); HEMOLYSIS < 15 (0-50); Lipase 439 U/L (23-300); PTT Partial Thromboplastin Tim 40 SECONDS (26.4-36.2); Potassium 3.5 mmol/L (3.4-5.1); Sodium 142 mmol/L (137-145); Total Protein 7.9 g/dL (6.3-8.2)
[2019-08-01 18:08] LABS: Pregnancy Test Serum,Qual Negative (Negative)
[2019-08-01 18:10] LABS: Hematocrit 33.6 % (36-46); Hemoglobin 11.3 g/dL (12.0-16.0); Mean Corpuscular HGB Conc 33.7 % (30-36); Mean Corpuscular Hemoglobin 35.3 PG (26-34); Mean Corpuscular Volume 104.8 fL (80-100); Platelet Count 212 X10^3/uL (150-400); Red Blood Cell Count 3.21 X10^6/uL (4.0-5.2); Red Cell Distribution Width 18.4 % (11.6-14.8)
[2019-08-01 18:12] LABS: Add Manual Diff / Slide Review YES
[2019-08-01 18:14] LABS: Ammonia (NH3) 39 umol/L (9-30)
[2019-08-01 18:15] LABS: Aspartate Aminotransferase 700 IU/L (14-36)
[2019-08-01 18:18] LABS: Troponin I < 0.012 ng/mL (0.01-0.034)
[2019-08-01 18:22] LABS: Lactate (Lactic Acid) 6.8 mmol/L (0.7-2.1)
[2019-08-01 18:32] LABS: Neutrophils Absolute Manual 11060 /uL (3000-5900); Total Cells Counted 100
[2019-08-01 18:33] LABS: Anisocytosis 1+; Macrocytosis 1+
[2019-08-01 18:39] LABS: Ethanol (ETOH) 423 mg/dL
[2019-08-01 18:48] LABS: Bilirubin Conjugated 4.7 md/dL (0.0-0.3); Bilirubin Unconjugated 1.3 mg/dL (0.0-1.1)
[2019-08-01] MEDS: LACTATED RINGERS 1,769.01 ML 589.67 ML IV (18:57)
[2019-08-01 18:58] LABS: Ur Creatinine Normal (Normal); Ur Specific Gravity Normal (Normal); Urine pH Normal (Normal)
[2019-08-01 18:59] LABS: UR Morphine/Opiate cutoff 300 Negative (Negative); Urine Amphetamines Negative (Negative); Urine Cocaine Negative (Negative); Urine Methamphetamines Positive (Negative); Urine Tetrahydrocannabinol Negative (Negative)
[2019-08-01 19:00] LABS: Urine Barbiturates Negative (Negative); Urine Benzodiazepines Negative (Negative); Urine MDMA Negative (Negative); Urine Methadone Negative (Negative); Urine Oxycodone Negative (Negative); Urine Phencyclidine Negative (Negative); Urine Tricyclic Antidepressant Negative (Negative)
[2019-08-01 19:02] LABS: RBC Urine 0-1/HPF (0-5/HPF)
[2019-08-01 19:03] LABS: Amorphous Sediment Urine 1+; Bacteria Urine Few (2-10); Culture Indicated Urine Specimen Cultured; Mucus Urine 1+ (Negative); Squamous Epithelial Cell Urine 5-10 /HPF (0-5/HPF); WBC Urine 5-10/HPF (0-5/HPF)
[2019-08-01] MEDS: PIPERACILLIN-TAZO 3.375 GM/50 ML FROZ.PIGGY IV (19:30)
[2019-08-01 19:47] LABS: Reflexed Lactate in 2 Hours Y
--- NOTE | 2019-08-01 21:05 | PC.NURSE ---
entered room after hearing very loud laughing coming from room.. Patient was laying sideways off the side of the stretcher messing with her IV pump. The patient has been instructed to call staff for help when pump alarms due to moving her arm. Pateint IV was pulled sideways and almost pulled out. IV resecured with tape. Patient asked to limit friends to one at a time. IV LR and ABX still infusing due to repeated distal occlusions and patient not complying with the plan. Lab came to draw repeat lactate however LR had not infused. Lab will be called when LR infused.
--- NOTE | 2019-08-01 21:41 | PC.NURSE ---
patient continues to bend her arm and not alert staff to pump alarm. Patient door left open, no friends at bedside now.
[2019-08-01 22:08] VITALS: BP 121/81; PULSE 116; O2SAT 100
--- NOTE | 2019-08-01 23:41 | PC.NURSE ---
patient removed all monitor wires after staff was in room situating patient. Staff removed all leads and stickers for previous cardiac monitoring. Stickers found in patients armpits, on breasts and on pillow. Patient resituated for at least the 10th time and is currently resting on stretcher with significant other at bedside. Provider aware of the situation
--- NOTE | 2019-08-01 23:41 | PC.NURSE ---
Patient is laying in bed and used the bed myers. RN and I replaced all lead cashier leads, O2 probe and recycled BP.
[2019-08-01 23:51] LABS: Lactate 2HR (Lactic Acid Rflx) 8.2 mmol/L (0.7-2.1)
[2019-08-02] MEDS: LACTATED RINGERS 1,000 ML 1000 ML IV (00:02)
[2019-08-02 00:08] LABS: Fractionated Inspired Oxygen 21; HCO3 ABG 26 mmol/L (22-26); Oxygen Saturation ABG 96 % (95-100); PO2 ABG 78 mmHg (80-100); TCO2 ABG 27 mmol/L (21-31); pH ABG 7.41 (7.35-7.45)
[2019-08-02 00:45] VITALS: BP 128/59; PULSE 113; RESP 17; O2SAT 98
[2019-08-02] MEDS: PHENobarbital 65 MG/ML VIAL 130 MG IV (01:28)
[2019-08-02] MEDS: LACTATED RINGERS 1,000 ML 150 ML IV (01:48)
[2019-08-02] MEDS: THIAMINE 200 MG/2 ML VIAL 100 MG IV (01:48)
[2019-08-02] MEDS: CEFTRIAXONE 1 GM/50 ML FROZ.PIGGY IV (02:34)
[2019-08-02 03:08] VITALS: BP 129/60; PULSE 120; RESP 20; O2SAT 98
== END 2019-08-02 03:08 | disposition short-term general hospital (02) ==
PROVIDERS: Emergency Medicine; Emergency Provider Emergency Medicine; PCP Physician Assistant
DX: G93.41 Metabolic encephalopathy (principal); F10.231 Alcohol dependence with withdrawal delirium; A41.9 Sepsis, unspecified organism; S00.83XA Contusion of other part of head, initial encounter
CPT/HCPCS: 36415; 36600; 70450; 71260; 72125; 74160; 80053; 80076; 80305; 80320; 81003; 81015; 82140; 82550; 82805; 83605; 83690; 84484; 84703; 85025; 85610; 85730; 86850; 86900; 86901; 87040; 87086; 93005; 96361; 96365; 96366; 96375; 99285; 99291; J2543; J2560; Q9967